=== PATIENT | male | born 1970 | race Two or more races ===

== ENCOUNTER 2021-09-16 05:42 | Emergency (ER) | payer OTHER ==
[~2021-09-16] VITALS: Ht 177.8 cm; Wt 71.2 kg
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
[2021-09-16] MEDS ORDERED: TETRAcaine 5 ML BOTTLE EACHEYE ONE (06:30)
[2021-09-16] MEDS ORDERED: FLUORESCEIN SODIUM OPHTH 1 EA STRIP OP ONE (06:30)
[2021-09-16] MEDS ORDERED: TONO PEN in ED SUPPLY ONICELL 1 EA MC ONE (06:30)
[2021-09-16] MEDS ORDERED: FLUORESCEIN SODIUM OPHTH 1 EA STRIP ONE (06:40)
[2021-09-16] MEDS ORDERED: CEFAZOLIN 2 GM in IV D5W 100 ML IV ONE (09:30)
[2021-09-16] MEDS ORDERED: TDAP [DIPH/PERTUSSIS/TET] 0.5 ML VIAL IM ONE ×2 (09:30→10:25)
[2021-09-16 09:47] LABS: BASOPHILS % (AUTO) 0.4 % (0.0-2.0); EOSINOPHILS % (AUTO) 0.6 % (0.0-6.0); HEMATOCRIT 40 % (39-51); HEMOGLOBIN 13.3 g/dL (13.5-17.5); LYMPHOCYTES # (AUTO) 1.5 K/uL (0.8-4.8); LYMPHOCYTES % (AUTO) 16.3 % (20.0-44.0); MEAN CORPUSCULAR HGB CONC 33 g/dl (31.0-36.0); MEAN CORPUSCULAR VOLUME 84 fL (80-96); MONOCYTES # (AUTO) 0.7 K/uL (0.1-1.30); MONOCYTES % (AUTO) 7.6 % (2.0-12.0); NEUTROPHILS # (AUTO) 6.8 K/uL (1.8-8.9); NEUTROPHILS % (AUTO) 75.1 % (43.0-81.0); PLATELET COUNT (AUTO) 335 K/uL (150-450); RED BLOOD CELL COUNT(AUTO) 4.78 MIL/uL (4.5-6.0); WHITE BLOOD COUNT (AUTO) 9.1 K/uL (4.3-11.0)
--- NOTE | 2021-09-16 09:48 | NUR ---
COVID SWAB DONE AND SENT TO THE LAB
--- NOTE | 2021-09-16 09:48 | NUR ---
CALLED [facility] FOR TRANSPORT TO [facility] ETA 1 HOUR.
--- NOTE | 2021-09-16 09:50 | NUR ---
RECEIVED A CALL FROM SHEREE AT THE [facility]. PT ACCEPTED BY DR. LAURA. CALL AND UPDATE HIM WITH AMBULANCE ETA.
[2021-09-16 09:54] LABS: CALCIUM, SERUM 8.9 mg/dL (8.5-10.1); CREATININE 0.8 mg/dL (0.6-1.3)
--- NOTE | 2021-09-16 10:05 | NUR ---
CALLED TO [facility] ABOUT AMBULANCE ETA. WANT US TO CALL REPORT TO [phone] TO BE CONNECTED TO ER FOR NURSING REPORT.
--- NOTE | 2021-09-16 10:28 | NUR ---
REPORT GIVEN TO NURSE CHANEY FROM [facility] ER
--- NOTE | 2021-09-16 11:21 | NUR ---
REPORT GIVEN TO AMBULANCE STAFF
--- NOTE | 2021-09-16 11:36 | NUR ---
THE PATIENT IS TRANSFERED TO [facility] VIA [facility]
[2021-09-16 11:37] VITALS: BP 121/67
== END 2021-09-16 11:37 | disposition short-term general hospital (02) ==
LOC: ER 05:44 → MERGE 05:44 → ER 11:37
DX: S01.122A Laceration with foreign body of left eyelid and periocular area, initial encounter (principal); S00.31XA Abrasion of nose, initial encounter; X95.01XA Assault by airgun discharge, initial encounter; Y92.89 Other specified places as the place of occurrence of the external cause; H11.32 Conjunctival hemorrhage, left eye; Z20.822 Contact with and (suspected) exposure to COVID-19; Z59.00 Homelessness unspecified; Z86.19 Personal history of other infectious and parasitic diseases
CPT/HCPCS: 12011; 36415; 70480; 80048; 85025; 85730; 87426; 90471; 90715; 96365; 99285; C9803; J0690; J7060

== ENCOUNTER 2021-11-01 17:49 | Emergency (ER) | payer OTHER ==
[~2021-11-01] VITALS: Ht 177.8 cm; Wt 77.1 kg
[2021-11-01 18:09] VITALS: BP 117/71
[2021-11-01] MEDS ORDERED: SULF1TAB48 PO (18:48)
[2021-11-01] MEDS ORDERED: CEPH500C2 PO (18:48)
--- NOTE | 2021-11-01 18:56 | NUR ---
Patient given written and verbal discharge instructions. Patient verbalizes understanding of instructions. Patient is ambulatory with steady gait. Refuses offer of assisted placement. Patient given list of available shelters in surrounding area.
== END 2021-11-01 18:58 | disposition home or self-care (01) ==
LOC: ER 17:51
DX: L03.114 Cellulitis of left upper limb (principal); Z98.890 Other specified postprocedural states; Z59.00 Homelessness unspecified

== ENCOUNTER 2021-11-04 17:16 | Emergency (ER) | payer OTHER ==
[~2021-11-04] VITALS: Ht 177.8 cm; Wt 77.1 kg
[~2021-11-04 17:16] MED LIST: CEPH500C2 PO; SULF1TAB48 PO
[2021-11-04 17:52] VITALS: BP 151/106
--- NOTE | 2021-11-04 19:23 | NUR ---
AWAITING FOR AN AVAILABLE BED. PT IS AWARE
--- NOTE | 2021-11-04 21:35 | NUR ---
Patient given written and verbal discharge instructions. Patient verbalizes understanding of instructions. Patient is ambulatory with steady gait. Refuses offer of half-way placement. Patient given list of available shelters in surrounding area. Homeless waiver signed by the patient.
== END 2021-11-04 21:40 | disposition home or self-care (01) ==
LOC: ER 17:18
DX: L03.114 Cellulitis of left upper limb (principal)

== ENCOUNTER 2022-01-29 11:57 | Emergency (ER) | payer OTHER ==
[~2022-01-29] VITALS: Ht 177.8 cm; Wt 82.1 kg
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
[2022-01-29] MEDS ORDERED: diphenhydrAMINE HCL 50 MG/ML VIAL ONE (12:07)
[2022-01-29] MEDS ORDERED: HALOPERIDOL LACTATE INJ 5 MG/ML VIAL ONE ×3 (12:07→23:51)
--- NOTE | 2022-01-29 12:07 | NUR ---
DR GUEVARA AT BEDSIDE FOR EVAL.
[2022-01-29] MEDS ORDERED: LORAZEPAM INJ 2 MG/ML VIAL ONE ×4 (12:08→23:53)
--- NOTE | 2022-01-29 12:13 | NUR ---
MEDICATED ORDERED. SEE EMAR
[2022-01-29] MEDS ORDERED: LORAZEPAM INJ 2 MG/ML VIAL IM ONE ×2 (12:30→19:30)
[2022-01-29] MEDS ORDERED: diphenhydrAMINE HCL 50 MG/ML VIAL IM ONE (12:30)
[2022-01-29] MEDS ORDERED: HALOPERIDOL LACTATE INJ 5 MG/ML VIAL IM ONE ×2 (12:30→17:00)
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
[2022-01-29 16:12] LABS: BASOPHILS % (AUTO) 0.6 % (0.0-2.0); EOSINOPHILS % (AUTO) 0.3 % (0.0-6.0); HEMATOCRIT 43 % (39-51); HEMOGLOBIN 14.1 g/dL (13.5-17.5); LYMPHOCYTES # (AUTO) 1.4 K/uL (0.8-4.8); LYMPHOCYTES % (AUTO) 23.9 % (20.0-44.0); MEAN CORPUSCULAR HGB CONC 33 g/dl (31.0-36.0); MEAN CORPUSCULAR VOLUME 81 fL (80-96); MONOCYTES # (AUTO) 0.7 K/uL (0.1-1.30); MONOCYTES % (AUTO) 11.5 % (2.0-12.0); NEUTROPHILS # (AUTO) 3.7 K/uL (1.8-8.9); NEUTROPHILS % (AUTO) 63.7 % (43.0-81.0); PLATELET COUNT (AUTO) 270 K/uL (150-450); RED BLOOD CELL COUNT(AUTO) 5.21 MIL/uL (4.5-6.0); WHITE BLOOD COUNT (AUTO) 5.8 K/uL (4.3-11.0)
[2022-01-29 16:35] LABS: ALANINE AMINOTRANSFERASE 64 U/L (12-78); ALBUMIN 3.8 g/dL (3.4-5.0); ALCOHOL, BLOOD < 3 mg/dL (0-0); ALKALINE PHOSPHATASE 72 U/L (46-116); ASPARTATE AMINOTRANSFERASE 45 U/L (15-37); BILIRUBIN,DIRECT 0.1 mg/dL (0.0-0.2); BILIRUBIN,TOTAL 0.4 mg/dL (0.2-1.0); CALCIUM, SERUM 8.9 mg/dL (8.5-10.1); CARBON DIOXIDE 28 mmol/L (21-32); CHLORIDE 107 mmol/L (98-107); CREATININE 0.8 mg/dL (0.6-1.3); GLUCOSE 89 mg/dL (74-106); POTASSIUM 3.9 mmol/L (3.5-5.1); SODIUM SERUM 142 mmol/L (136-145); TOTAL PROTEIN, SERUM 7.4 g/dL (6.4-8.2); UREA NITROGEN, BLOOD 18 mg/dL (7-18)
[2022-01-29 16:44] LABS: ACETAMINOPHEN < 2 ug/ml (10-30)
--- NOTE | 2022-01-29 17:00 | NUR ---
PT GETTING AGITATED, YELLING. DR RAMOS AABEKA. MEDICATED ORDERED.
--- NOTE | 2022-01-29 19:50 | NUR ---
IV LINE ESTABLISHED. RFA 20G
[2022-01-29] MEDS ORDERED: IV D5 LR 1,000 ML IV ONE (20:00)
[2022-01-29] MEDS ORDERED: LORAZEPAM INJ 2 MG/ML VIAL IV ONE (20:30)
[2022-01-29] MEDS ORDERED: OLANZAPINE 10 MG VIAL IM ONE ×2 (20:30→20:36)
[2022-01-30] MEDS ORDERED: HALOPERIDOL LACTATE INJ 5 MG/ML VIAL IM ONE
[2022-01-30] MEDS ORDERED: LORAZEPAM INJ 2 MG/ML VIAL IM ONE
--- NOTE | 2022-01-30 00:05 | NUR ---
ATIVAN AND HALDOL NOT GIVEN AND CANCELLED BY D/T PT WENT BACK TO SLEEP AFTER HAVING A DREAM.
--- NOTE | 2022-01-30 08:32 | NUR ---
BREAKFAST TRAY PROVIDED. TOLERATED PO WELL
--- NOTE | 2022-01-30 11:55 | NUR ---
LUNCH TRAY PROVIDED. TOLERATED PO WELL
--- NOTE | 2022-01-30 15:23 | NUR ---
PATIENT IN BED ASLEEP, EASILY AROUSABLE BY VOICE. HOOKED TO MONITOR. VSS. WILL CONTINUE TO MONITOR. KEPT SAFE AND COMFORTABLE
--- NOTE | 2022-01-30 16:26 | NUR ---
FAXED CLINICALS TO [facility] INTAKE.
[2022-01-30 18:56] VITALS: BP 118/68
--- NOTE | 2022-01-30 19:38 | NUR ---
PATIENT PICKED UP BY [facility] IN STABLE CONDITION. ALL BELONGINGS BROUGHT WITH THE PATIENT.
== END 2022-01-30 19:39 ==
LOC: ER 12:03
DX: F15.10 Other stimulant abuse, uncomplicated (principal); R45.851 Suicidal ideations; Z20.822 Contact with and (suspected) exposure to COVID-19; Z59.00 Homelessness unspecified; F32.A Depression, unspecified
CPT/HCPCS: 36415; 80048; 80076; 80143; 80307; 80320; 85025; 87426; 96361; 96372 ×2; 96374; 99291; C9803; J1200; J1630 ×3; J2060 ×4; J3490 ×3; G0480